=== PATIENT | female | born 1940 | race Caucasian/White ===

== ENCOUNTER 2018-09-12 08:42 | Day surgery (SDC) | payer MEDICARE ==
[~2018-09-12] VITALS: Ht 162.6 cm; Wt 83.9 kg
[~2018-09-12 08:42] MED LIST: APIX5TAB PO; L-THYROXINE PO; LEVO137T24 PO; LEVO150 PO; LOVA10TA2 PO; MECL-111 PO; METO50 PO; PROP225C11 PO; SODIUM CHLORIDE 0.9% 1000ML 1,000 ML IV ONE
[2018-09-12 10:28] VITALS: BP 140/63
[2018-09-12] MEDS ORDERED: PROPOFOL 10 MG/ML 20ML VIAL IV ONE ×2 (12:30)
[2018-09-12] MEDS ORDERED: PHENYLEPHRINE HCL 10 MG/ML 1ML VIAL IV ONE (12:30)
[2018-09-12] MEDS ORDERED: LIDOCAINE HCL 2% 20ML ONE (12:30)
[2018-09-12 13:01] VITALS: BP 123/75
[2018-09-12 13:06] VITALS: BP 101/64
[2018-09-12 13:11] VITALS: BP 116/68
[2018-09-12 13:16] VITALS: BP 122/69
[2018-09-12 13:25] VITALS: BP 129/73
== END 2018-09-12 13:40 | disposition home or self-care (01) ==
LOC: DAH 08:42 → ENDO 08:42
PROVIDERS: ATTEND Internal Medicine
DX: D12.0 Benign neoplasm of cecum (principal); D12.2 Benign neoplasm of ascending colon; D12.3 Benign neoplasm of transverse colon; D12.4 Benign neoplasm of descending colon; D12.5 Benign neoplasm of sigmoid colon; K57.30 Diverticulosis of large intestine without perforation or abscess without bleeding; K64.0 First degree hemorrhoids; I10 Essential (primary) hypertension; E03.9 Hypothyroidism, unspecified; E78.5 Hyperlipidemia, unspecified; Z68.34 Body mass index [BMI] 34.0-34.9, adult; Z79.899 Other long term (current) drug therapy; Z98.890 Other specified postprocedural states; Z90.710 Acquired absence of both cervix and uterus; I48.91 Unspecified atrial fibrillation
CPT/HCPCS: 45380; 45385; 88305; 93005; A4606; A4649; J2370; J2704 ×2; J3490; J7030

== ENCOUNTER → 2019-05-21 | Outpatient (CLI) | payer MEDICARE ==
[~2019-05-21] MED LIST changes: -SODIUM CHLORIDE 0.9% 1000ML 1,000 ML IV ONE
== END | disposition home or self-care (01) ==
LOC: SHCH 09:04
PROVIDERS: ATTEND Internal Medicine Cardiovascular Disease
DX: I48.0 Paroxysmal atrial fibrillation (principal)
CPT/HCPCS: 93306

== ENCOUNTER 2020-02-09 07:12 | Emergency (ER) | payer MEDICARE ==
[~2020-02-09 07:12] MED LIST changes: -MECL-111 PO; +MECL-160 PO
[2020-02-09] MEDS ORDERED: SODIUM CHLORIDE 0.9% 1000ML 1,000 ML IV ONE (07:13)
[2020-02-09 07:52] LABS: BASOPHILS % (AUTO) 0.2 % (0.0-5.0); HEMATOCRIT 43.2 % (36-48); LYMPHOCYTES % (AUTO) 14.6 % (21.0-51.0); MEAN CORPUSCULAR HEMOGLOBIN 29.8 pg (27.0-33.0); MEAN CORPUSCULAR VOLUME 87.4 fL (79-99); MONOCYTES % (AUTO) 7.1 % (3.0-13.0); NEUTROPHILS % (AUTO) 77.8 % (40.0-77.0); PLATELET COUNT (AUTO) 451 K/uL (130-400); RED BLOOD CELL COUNT(AUTO) 4.94 MIL/uL (4.00-5.50); RED CELL DISTRIBUTION WIDTH 12.8 % (11.0-15.5); WHITE BLOOD COUNT (AUTO) 9.2 K/uL (4.8-10.8)
[2020-02-09] MEDS ORDERED: METRONIDAZOLE 500MG/100ML BAG 100 ML ONE (08:07)
[2020-02-09] MEDS ORDERED: LEVOFLOXACIN 500 MG/D5W 100 ML 100 ML ONE (08:07)
[2020-02-09 08:26] LABS: INR 1.18 (0.85-1.15); PARTIAL THROMBOPLASTIN TIME 32.7 SEC (26.3-35.5); PROTHROMBIN TIME 12.7 SEC (9.6-11.6)
[2020-02-09 08:48] LABS: ALBUMIN 3.2 g/dL (3.5-5.0); BILIRUBIN,TOTAL 0.5 mg/dL (0.2-1.0); POTASSIUM 3.5 mmol/L (3.5-5.1); TOTAL PROTEIN, SERUM 6.8 g/dL (6.0-8.3)
[2020-02-09 09:28] LABS: APPEARANCE,URINE Clear (CLEAR); BILIRUBIN,URINE Negative (NEGATIVE); COLOR,URINE Yellow (YELLOW); GLUCOSE, URINE (UA) Negative (NEGATIVE); KETONES,URINE Negative (NEGATIVE); LEUKOCYTE ESTERASE ,URINE Trace (NEGATIVE); NITRATE,URINE Negative (NEGATIVE); OCCULT BLOOD,URINE Negative (NEGATIVE); PH,URINE 5.5 (5.0-8.0); PROTEIN,URINE Negative (NEGATIVE); UROBILINOGEN,URINE 0.2 mg/dL (0.2-1.0)
[2020-02-09 09:31] LABS: BACTERIA,URINE Rare /HPF (None Seen); RBC,URINE 0-1 /HPF (0-1); SQUAMOUS EPITHELIAL CELL,UR Rare /HPF (0-2); WBC,URINE 0-1 /HPF (0-1)
[2020-02-09] MEDS ORDERED: CIPR500S5 PO (23:40)
[2020-02-09] MEDS ORDERED: ONDA4TAB10 PO (23:40)
[2020-02-09] MEDS ORDERED: METR500T PO (23:40)
== END 2020-02-09 13:23 | disposition home or self-care (01) ==
LOC: EDH 07:12
DX: K57.32 Diverticulitis of large intestine without perforation or abscess without bleeding (principal); R11.2 Nausea with vomiting, unspecified; R19.7 Diarrhea, unspecified; E86.0 Dehydration; I10 Essential (primary) hypertension; I48.91 Unspecified atrial fibrillation; Z90.49 Acquired absence of other specified parts of digestive tract; Z90.710 Acquired absence of both cervix and uterus
CPT/HCPCS: 36415; 71045; 74176; 80053; 81001; 82270; 82550; 84484; 85025; 85610; 85730; 87046; 87324; 93005; 96365; 96366; 96368; 99285; J1956; J3490; J7030

== ENCOUNTER 2020-02-09 20:09 | Inpatient (IN) | payer MEDICARE ==
[~2020-02-09] VITALS: Ht 157.5 cm; Wt 83.9 kg
[2020-02-09 20:53] LABS: BASOPHILS % (AUTO) 0.2 % (0.0-5.0); EOSINOPHILS % (AUTO) 0.1 % (0.0-8.0); HEMATOCRIT 41.8 % (36-48); MEAN CORPUSCULAR HEMOGLOBIN 29.6 pg (27.0-33.0); MEAN CORPUSCULAR VOLUME 87.3 fL (79-99); MONOCYTES % (AUTO) 8.3 % (3.0-13.0); PLATELET COUNT (AUTO) 454 K/uL (130-400); RED BLOOD CELL COUNT(AUTO) 4.79 MIL/uL (4.00-5.50); RED CELL DISTRIBUTION WIDTH 12.9 % (11.0-15.5); WHITE BLOOD COUNT (AUTO) 10.8 K/uL (4.8-10.8)
[2020-02-09 21:09] LABS: ALBUMIN 3.2 g/dL (3.5-5.0); BILIRUBIN,TOTAL 0.5 mg/dL (0.2-1.0); CREATININE 0.9 mg/dL (0.5-1.5); POTASSIUM 3.5 mmol/L (3.5-5.1); TOTAL PROTEIN, SERUM 6.6 g/dL (6.0-8.3)
[2020-02-09] MEDS ORDERED: ZOSYN 3.375GM+NS 50ML 50 ML IV ONE (22:23)
[2020-02-09 22:50] VITALS: BP 146/71
[2020-02-09] MEDS ORDERED: FLUCONAZOLE 200 MG/NS 100 ML 100 ML ONE (23:16)
[2020-02-09] MEDS ORDERED: METR500T PO (23:40)
[2020-02-09] MEDS ORDERED: CIPR500S5 PO (23:40)
[2020-02-09] MEDS ORDERED: ONDA4TAB10 PO ×2 (23:40)
[2020-02-10] MEDS ORDERED: ACETAMINOPHEN 325 MG TAB PO PRN
[2020-02-10] MEDS ORDERED: ONDANSETRON HCL 4 MG/2 ML VIAL IVP PRN
[2020-02-10] MEDS ORDERED: MORPHINE SULFATE 4 MG/1ML SYG IV PRN
[2020-02-10] MEDS: SODIUM CHLORIDE 0.9% 1000ML 1,000 ML IV SCH ×2 (03:29→20:00)
[2020-02-10 03:49] VITALS: BP 115/61
[2020-02-10] MEDS: ZOSYN 3.375GM+NS 50ML 50 ML IV SCH ×3 (04:19→20:43)
[2020-02-10 05:22] LABS: BASOPHILS % (AUTO) 0.3 % (0.0-5.0); EOSINOPHILS % (AUTO) 0.3 % (0.0-8.0); HEMATOCRIT 37.8 % (36-48); LYMPHOCYTES % (AUTO) 19.6 % (21.0-51.0); MEAN CORPUSCULAR HEMOGLOBIN 29.2 pg (27.0-33.0); MEAN CORPUSCULAR HGB CONC 32.8 g/dL (32.0-36.0); MEAN CORPUSCULAR VOLUME 89.2 fL (79-99); MONOCYTES % (AUTO) 11.9 % (3.0-13.0); NEUTROPHILS % (AUTO) 67.5 % (40.0-77.0); PLATELET COUNT (AUTO) 365 K/uL (130-400); RED BLOOD CELL COUNT(AUTO) 4.24 MIL/uL (4.00-5.50); WHITE BLOOD COUNT (AUTO) 7.5 K/uL (4.8-10.8)
[2020-02-10 05:42] LABS: CREATININE 0.9 mg/dL (0.5-1.5); POTASSIUM 3.3 mmol/L (3.5-5.1)
[2020-02-10 08:00] VITALS: BP 109/66
[2020-02-10] MEDS ORDERED: ONDANSETRON ODT 4 MG TAB PO PRN (11:00)
[2020-02-10] MEDS ORDERED: POTASSIUM CHLORIDE 10% ELIXIR 20 MEQ/15 ML UDCUP PO PRN (11:45)
[2020-02-10] MEDS ORDERED: LIDOCAINE HCL-MPF 1% 2ML VIAL IV PRN ×2 (11:45→18:15)
[2020-02-10] MEDS ORDERED: POTASSIUM CHLORIDE 20MEQ/100ML 100 ML IV PRN ×2 (11:45→18:15)
[2020-02-10 12:00] VITALS: BP 111/59
[2020-02-10] MEDS: METOPROLOL TARTRATE 50 MG TAB PO SCH (12:29)
[2020-02-10] MEDS: PROPAFENONE HCL 150 MG TABLET PO SCH ×2 (12:30→20:44)
[2020-02-10] MEDS: POTASSIUM CHLORIDE 20 MEQ ERTAB PO PRN ×2 (13:08→20:44)
--- NOTE | 2020-02-10 14:00 | NUR ---
davonte bello of dr thrasher came to see patient. informed patient will keep without diet for now and will come by tomorrow to reevaluate ,for now to cont antibiotics. patient verbalized understanding
[2020-02-10 16:00] VITALS: BP 132/91
[2020-02-10] MEDS ORDERED: SIMVASTATIN 10 MG TABLET ONE (18:36)
[2020-02-10] MEDS ORDERED: APIXABAN 5 MG TABLET PO ONE (18:37)
--- NOTE | 2020-02-10 19:14 | NUR ---
INITIAL Spoke w pt this evening to discuss dcp. Pt mentions that she lives alone. She is independent w ambulation and ADLs. She does not own any DME or receive services. Per pt she feels safe and comfortable to return home at tx and is not willing to consider any short term SNF or rehab. She mentions that her friend Nery Lezama will assist her w meals if needed. DCP for home; CM to continue to follow and wait for Md recommendations. Addendum: 02/10/20 at 1916 by BENJAMÍN ESCOBEDO CM Amended: Links added.
[2020-02-10 20:33] VITALS: BP 106/62
[2020-02-10] MEDS: SIMVASTATIN 10 MG TABLET PO SCH (20:44)
[2020-02-10] MEDS: APIXABAN 5 MG TABLET PO SCH (20:44)
[2020-02-10] MEDS ORDERED: FLUCONAZOLE 200 MG/NS 100 ML 100 ML IV SCH (23:00)
[2020-02-10 23:44] VITALS: BP 98/60
[2020-02-11] MEDS: POTASSIUM CHLORIDE 20 MEQ ERTAB PO PRN (00:15)
[2020-02-11] MEDS: ZOSYN 3.375GM+NS 50ML 50 ML IV SCH ×2 (03:31→21:07)
[2020-02-11 03:45] VITALS: BP 114/70
[2020-02-11] MEDS ORDERED: LEVOTHYROXINE 25 MCG TABLET ONE (05:08)
[2020-02-11 05:32] LABS: ALBUMIN 2.7 g/dL (3.5-5.0); BILIRUBIN,TOTAL 0.5 mg/dL (0.2-1.0); CREATININE 1.1 mg/dL (0.5-1.5); TOTAL PROTEIN, SERUM 5.6 g/dL (6.0-8.3)
[2020-02-11] MEDS: LEVOTHYROXINE 25 MCG TABLET PO SCH (05:36)
[2020-02-11] MEDS: LEVOTHYROXINE 112 MCG TABLET PO SCH (05:36)
[2020-02-11] MEDS: SODIUM CHLORIDE 0.9% 1000ML 1,000 ML IV SCH (05:41)
[2020-02-11 07:30] VITALS: BP 133/79
[2020-02-11] MEDS: PROPAFENONE HCL 150 MG TABLET PO SCH ×2 (08:55→21:08)
[2020-02-11] MEDS: METOPROLOL TARTRATE 50 MG TAB PO SCH (08:55)
[2020-02-11] MEDS: APIXABAN 5 MG TABLET PO SCH ×2 (08:56→21:07)
[2020-02-11 11:00] VITALS: BP 147/77
[2020-02-11 16:00] VITALS: BP 106/64
[2020-02-11] MEDS: SIMVASTATIN 10 MG TABLET PO SCH (21:07)
[2020-02-11 21:12] VITALS: BP 146/71
[2020-02-12 00:37] VITALS: BP 157/73
--- NOTE | 2020-02-12 01:22 | NUR ---
ACTIVITY Pt gets oob,calls for assistance,[facility].
[2020-02-12] MEDS: SODIUM CHLORIDE 0.9% 1000ML 1,000 ML IV SCH (02:54)
[2020-02-12 04:22] VITALS: BP 140/65
[2020-02-12] MEDS: ZOSYN 3.375GM+NS 50ML 50 ML IV SCH (05:07)
[2020-02-12] MEDS: LEVOTHYROXINE 112 MCG TABLET PO SCH (06:07)
[2020-02-12] MEDS: LEVOTHYROXINE 25 MCG TABLET PO SCH (06:07)
[2020-02-12] MEDS ORDERED: LEVOTHYROXINE 150 MCG TABLET PO SCH (06:30)
[2020-02-12] MEDS: METOPROLOL TARTRATE 50 MG TAB PO SCH (07:48)
[2020-02-12] MEDS: APIXABAN 5 MG TABLET PO SCH (07:48)
[2020-02-12] MEDS: PROPAFENONE HCL 150 MG TABLET PO SCH (07:49)
--- NOTE | 2020-02-12 08:00 | NUR ---
PT AAO X 3 REVIEW PLAN OF CARE. DENIES ANY ABD PAIN DIET CHANGE NOTED .WITH NO C/O OF NAUSEA . CALL LIGHT I N REACH.
[2020-02-12 08:43] VITALS: BP 144/85
[2020-02-12] MEDS ORDERED: LEVOTHYROXINE SODIUM 137 MCG PO SCH (09:00)
[2020-02-12 11:48] VITALS: BP 150/70
--- NOTE | 2020-02-12 16:15 | NUR ---
DISCHARGE HOME. REVIEW. DENIES ANY ABD PAIN/ SL TO HER LAF WAS DC WITH NO REDNESS OR HEMATOMA NOTED . SURGERY STANDPOINT WAS ALSO REVIEW AND NO INTERVENTIONS OR FOLLOWUP NEEDED . PT TO FOLLOW PRIVATE AND DR. HOUSER OFFICE WAS CALLED ,AND STAFF STATED THAT THEY WOULD CALL HER . TO SET APPT. TOOK DIET WELL.
== END 2020-02-12 16:15 | disposition home or self-care (01) | DRG 392 ==
LOC: EDH 20:09 → EDHIP 21:45 → 3DH 22:46
PROVIDERS: ADMIT Internal Medicine Infectious Disease; ATTEND Internal Medicine Infectious Disease
DX: K57.32 Diverticulitis of large intestine without perforation or abscess without bleeding (principal); E03.9 Hypothyroidism, unspecified; I48.91 Unspecified atrial fibrillation; E78.5 Hyperlipidemia, unspecified; E66.9 Obesity, unspecified; I10 Essential (primary) hypertension; Z90.710 Acquired absence of both cervix and uterus; Z90.49 Acquired absence of other specified parts of digestive tract; Z68.33 Body mass index [BMI] 33.0-33.9, adult
CPT/HCPCS: 36415; 71045; 74176; 80048; 80053; 81001; 82270; 82550; 83690; 84484; 85025; 85610; 85730; 87046; 87324; 93005; 96365; 96366; 96368; G0378; J1450; J1956; J2405; J2543; J3490; J7030

== ENCOUNTER → 2021-03-23 | Outpatient (CLI) | payer MEDICARE ==
[~2021-03-23] MED LIST changes: +CIPR500S5 PO; -L-THYROXINE PO; -MECL-160 PO; +METR500T PO; +ONDA4TAB10 PO
== END | disposition home or self-care (01) ==
LOC: RAH 12:37
PROVIDERS: ATTEND Orthopaedic Surgery
DX: S83.241A Other tear of medial meniscus, current injury, right knee, initial encounter (principal); S83.242A Other tear of medial meniscus, current injury, left knee, initial encounter; M17.0 Bilateral primary osteoarthritis of knee; X58.XXXA Exposure to other specified factors, initial encounter; Y93.89 Activity, other specified; Y92.89 Other specified places as the place of occurrence of the external cause; Y99.8 Other external cause status
CPT/HCPCS: 73721

== ENCOUNTER 2021-11-04 10:42 | Day surgery (SDC) | payer MEDICARE ==
[2021-11-02 09:55] LABS: BASOPHILS % (AUTO) 0.3 % (0.0-5.0); EOSINOPHILS % (AUTO) 0.5 % (0.0-8.0); HEMATOCRIT 48.4 % (36-48); LYMPHOCYTES % (AUTO) 26.5 % (21.0-51.0); MEAN CORPUSCULAR HEMOGLOBIN 29.9 pg (27.0-33.0); MEAN CORPUSCULAR HGB CONC 32.9 g/dL (32.0-36.0); MEAN CORPUSCULAR VOLUME 91.1 fL (79-99); MONOCYTES % (AUTO) 10.3 % (3.0-13.0); NEUTROPHILS % (AUTO) 62.1 % (40.0-77.0); PLATELET COUNT (AUTO) 299 K/uL (130-400); RED BLOOD CELL COUNT(AUTO) 5.31 MIL/uL (4.00-5.50); RED CELL DISTRIBUTION WIDTH 13.1 % (11.0-15.5); WHITE BLOOD COUNT (AUTO) 8.6 K/uL (4.8-10.8)
[2021-11-02 10:17] LABS: CREATININE 0.8 mg/dL (0.5-1.5); POTASSIUM 4.2 mmol/L (3.5-5.1)
[2021-11-02 10:24] LABS: INR 1.09 (0.85-1.15); PROTHROMBIN TIME 11.8 SEC (9.6-11.6)
[2021-11-02 10:25] LABS: PARTIAL THROMBOPLASTIN TIME 26.8 SEC (26.3-35.5)
[2021-11-03 09:19] VITALS: BP 175/82
[~2021-11-04] VITALS: Ht 152.4 cm; Wt 83.9 kg
[2021-11-04] VITALS (19 sets, daily range): BP systolic 124–180; BP diastolic 76–125
[~2021-11-04 10:42] MED LIST changes: +CEFAZOLIN SODIUM 1 GM VIAL IVP ONE; -CIPR500S5 PO; -LOVA10TA2 PO; -METR500T PO; -ONDA4TAB10 PO; +ROSU5TAB12 PO; +VITAMIN D PO
[2021-11-04] MEDS ORDERED: LACTATED RINGERS 1000ML 1,000 ML IV ONE (11:35)
[2021-11-04] MEDS ORDERED: CEFAZOLIN SODIUM 1 GM VIAL ONE (11:59)
[2021-11-04] MEDS ORDERED: SUCCINYLCHOLINE 200MG/10ML SYR ONE (12:13)
[2021-11-04] MEDS ORDERED: MIDAZOLAM HCL 1 MG/ML 2ML VIAL ONE (12:13)
[2021-11-04] MEDS ORDERED: LIDOCAINE PF 100MG/5ML (2%) SYRINGE 5ML ONE (12:13)
[2021-11-04] MEDS ORDERED: ROCURONIUM 10MG/1ML SYR 10 MG/ML ML ONE (12:13)
[2021-11-04] MEDS ORDERED: FENTANYL CITRATE PF 50 MCG/1 ML 2ML VIAL ONE (12:13)
[2021-11-04] MEDS ORDERED: PROPOFOL 10 MG/ML 20ML VIAL IV ONE (12:13)
[2021-11-04] MEDS ORDERED: ROPIVACAINE 0.5% 5MG/ML 30ML IJ ONE (12:16)
[2021-11-04] MEDS ORDERED: DEXAMETHASONE SOD PHOSPHATE 10MG/ML 1ML VIAL ONE (12:23)
[2021-11-04] MEDS ORDERED: GLYCOPYRROLATE 1 MG/5 ML SYRINGE ONE (13:05)
[2021-11-04] MEDS ORDERED: EPHEDRINE SULFATE 50 MG/ML AMPULE ONE (13:22)
[2021-11-04] MEDS ORDERED: MEPERIDINE-PF 25 MG/ML SYG ONE (14:46)
[2021-11-04] MEDS ORDERED: ENALAPRILAT DIHYDRATE 1.25MG/ML 1ML VIAL IV ONE (14:56)
[2021-11-04] MEDS ORDERED: KETOROLAC 30MG VIAL (30MG/ML) ONE (16:15)
== END 2021-11-04 16:58 | disposition home or self-care (01) ==
LOC: DAH 10:42
PROVIDERS: ATTEND Specialist
DX: C50.911 Malignant neoplasm of unspecified site of right female breast (principal); E66.9 Obesity, unspecified; M81.0 Age-related osteoporosis without current pathological fracture; Z79.899 Other long term (current) drug therapy; Z79.01 Long term (current) use of anticoagulants; Z90.49 Acquired absence of other specified parts of digestive tract; Z90.89 Acquired absence of other organs; Z90.710 Acquired absence of both cervix and uterus; Z98.890 Other specified postprocedural states; Z98.49 Cataract extraction status, unspecified eye; Z68.34 Body mass index [BMI] 34.0-34.9, adult
CPT/HCPCS: 19307; 36415; 71045; 80048; 85025; 85610; 85730; 87635; 93005; A4215 ×2; A4221 ×2; A4222 ×2; A4223 ×2; A4663 ×2; A6260; A6446; A6450; C9803; J0330; J0690; J1100; J1885; J2001; J2175; J2250; J2704; J2795; J3010; J3490 ×3; J7120

== ENCOUNTER 2022-03-09 17:52 | Emergency (ER) | payer MEDICARE ==
[~2022-03-09 17:52] MED LIST changes: -CEFAZOLIN SODIUM 1 GM VIAL IVP ONE
[2022-03-09 18:09] LABS: BASOPHILS % (AUTO) 0.2 % (0.0-5.0); EOSINOPHILS % (AUTO) 0.2 % (0.0-8.0); HEMATOCRIT 43.1 % (36-48); LYMPHOCYTES % (AUTO) 23.5 % (21.0-51.0); MEAN CORPUSCULAR HEMOGLOBIN 30.2 pg (27.0-33.0); MEAN CORPUSCULAR HGB CONC 34.6 g/dL (32.0-36.0); MEAN CORPUSCULAR VOLUME 87.4 fL (79-99); MONOCYTES % (AUTO) 9.2 % (3.0-13.0); NEUTROPHILS % (AUTO) 66.6 % (40.0-77.0); PLATELET COUNT (AUTO) 317 K/uL (130-400); RED BLOOD CELL COUNT(AUTO) 4.93 MIL/uL (4.00-5.50); RED CELL DISTRIBUTION WIDTH 12.2 % (11.0-15.5); WHITE BLOOD COUNT (AUTO) 9.5 K/uL (4.8-10.8)
[2022-03-09 18:18] LABS: CREATININE 0.9 mg/dL (0.5-1.5); POTASSIUM 3.6 mmol/L (3.5-5.1)
[2022-03-09 18:23] LABS: ALBUMIN 3.6 g/dL (3.5-5.0); TOTAL PROTEIN, SERUM 6.7 g/dL (6.0-8.3)
[2022-03-09] MEDS ORDERED: 0.9%NACL 1000ML 1,000 ML IV ONE (19:00)
[2022-03-09 19:29] VITALS: BP 172/4
[2022-03-09] MEDS ORDERED: DIPH1TAB PO (19:40)
== END 2022-03-09 19:53 | disposition home or self-care (01) ==
LOC: EDH 17:52
DX: U07.1 COVID-19 (principal); R19.7 Diarrhea, unspecified; Z79.01 Long term (current) use of anticoagulants
CPT/HCPCS: 99284; 96360; 87635; 84484; 80053; 85025; 36415; 93005; C9803; J7030

== ENCOUNTER 2022-08-11 00:54 | Emergency (ER) | payer MEDICARE ==
[~2022-08-11] VITALS: Ht 157.5 cm; Wt 85.3 kg
[~2022-08-11 00:54] MED LIST changes: +DIPH1TAB PO
[2022-08-11 02:20] LABS: BASOPHILS % (AUTO) 0.2 % (0.0-5.0); EOSINOPHILS % (AUTO) 0.3 % (0.0-8.0); HEMATOCRIT 41.6 % (36-48); LYMPHOCYTES % (AUTO) 19.8 % (21.0-51.0); MEAN CORPUSCULAR HEMOGLOBIN 30.4 pg (27.0-33.0); MEAN CORPUSCULAR HGB CONC 33.7 g/dL (32.0-36.0); MEAN CORPUSCULAR VOLUME 90.4 fL (79-99); MONOCYTES % (AUTO) 8.7 % (3.0-13.0); NEUTROPHILS % (AUTO) 70.7 % (40.0-77.0); PLATELET COUNT (AUTO) 270 K/uL (130-400); WHITE BLOOD COUNT (AUTO) 10.1 K/uL (4.8-10.8)
[2022-08-11 02:28] LABS: CREATININE 0.9 mg/dL (0.5-1.5)
[2022-08-11 02:33] LABS: ALBUMIN 3.4 g/dL (3.5-5.0); TOTAL PROTEIN, SERUM 6.1 g/dL (6.0-8.3)
[2022-08-11 03:14] LABS: APPEARANCE,URINE CLEAR (CLEAR); BILIRUBIN,URINE NEGATIVE (NEGATIVE); COLOR,URINE COLORLESS (YELLOW); GLUCOSE, URINE (UA) NEGATIVE (NEGATIVE); KETONES,URINE NEGATIVE (NEGATIVE); LEUKOCYTE ESTERASE ,URINE 250 Leu/uL (NEGATIVE); NITRATE,URINE NEGATIVE (NEGATIVE); OCCULT BLOOD,URINE NEGATIVE (NEGATIVE); PH,URINE 5.5 (5.0-8.0); PROTEIN,URINE NEGATIVE (NEGATIVE); UROBILINOGEN,URINE 0.2 mg/dL (0.2-1.0)
[2022-08-11 03:33] LABS: BACTERIA,URINE RARE /HPF (None Seen); SQUAMOUS EPITHELIAL CELL,UR RARE /HPF (0-2)
[2022-08-11] MEDS ORDERED: CEPH500B PO (04:03)
[2022-08-11 04:21] VITALS: BP 156/73
[2022-08-11] MEDS ORDERED: CEFTRIAXONE 1G VIAL IVP ONE (04:30)
== END 2022-08-11 04:30 | disposition home or self-care (01) ==
LOC: EDH 00:54
DX: I10 Essential (primary) hypertension (principal); N39.0 Urinary tract infection, site not specified; I48.91 Unspecified atrial fibrillation; M19.90 Unspecified osteoarthritis, unspecified site; E78.00 Pure hypercholesterolemia, unspecified; Z79.899 Other long term (current) drug therapy; Z98.890 Other specified postprocedural states; Z90.11 Acquired absence of right breast and nipple; Z90.89 Acquired absence of other organs; Z90.49 Acquired absence of other specified parts of digestive tract; Z85.3 Personal history of malignant neoplasm of breast
CPT/HCPCS: 99285; 96374; 71045; 84484; 80053; 85025; 87088; 81001; 36415; 93005; J0696

== ENCOUNTER → 2023-09-09 | Outpatient (CLI) | payer MEDICARE ==
[~2023-09-09] MED LIST changes: +CEPH500B PO
== END | disposition home or self-care (01) ==
LOC: SHCH 10:41
PROVIDERS: ATTEND Internal Medicine Cardiovascular Disease
DX: I08.0 Rheumatic disorders of both mitral and aortic valves (principal); I48.0 Paroxysmal atrial fibrillation; I10 Essential (primary) hypertension
CPT/HCPCS: 93306

== ENCOUNTER → 2024-02-01 | Outpatient (CLI) | payer MEDICARE ==
[~2024-02-01] MED LIST changes: -ROSU5TAB12 PO; +ROSU5TAB43 PO
== END | disposition home or self-care (01) ==
LOC: RAH 11:01
PROVIDERS: ATTEND Orthopaedic Surgery
DX: S73.192A Other sprain of left hip, initial encounter (principal); X58.XXXA Exposure to other specified factors, initial encounter; Y93.89 Activity, other specified; Y92.89 Other specified places as the place of occurrence of the external cause; Y99.8 Other external cause status
CPT/HCPCS: 73721

== ENCOUNTER 2024-03-12 08:56 | Emergency (ER) | payer MEDICARE ==
[~2024-03-12] VITALS: Ht 157.5 cm; Wt 81.6 kg
[~2024-03-12 08:56] MED LIST changes: +ONDA-243 PO
[2024-03-12 08:57] VITALS: TEMP 97.8
[2024-03-12 09:13] LABS: BASOPHILS # (AUTO) 0.02 K/uL (0.00-0.20); BASOPHILS % (AUTO) 0.2 % (0.0-5.0); EOSINOPHILS # (AUTO) 0.08 K/uL (0.00-0.70); EOSINOPHILS % (AUTO) 0.7 % (0.0-8.0); HEMATOCRIT 42.6 % (36-48); IMMATURE GRANULOCYTE ABSOLUTE 0.04 K/uL (0-1); LYMPHOCYTES # (AUTO) 1.4 K/uL (1.0-4.8); LYMPHOCYTES % (AUTO) 13.2 % (21.0-51.0); MEAN CORPUSCULAR HEMOGLOBIN 30.8 pg (27.0-33.0); MEAN CORPUSCULAR HGB CONC 33.1 g/dL (32.0-36.0); MONOCYTES # (AUTO) 1.2 K/uL (0.1-1.0); MONOCYTES % (AUTO) 10.7 % (3.0-13.0); NEUTROPHILS # (AUTO) 8.2 K/uL (1.8-7.7); NEUTROPHILS % (AUTO) 74.8 % (40.0-77.0); PLATELET COUNT (AUTO) 301 K/uL (130-400); RED BLOOD CELL COUNT(AUTO) 4.58 MIL/uL (4.00-5.50); RED CELL DISTRIBUTION WIDTH 13.2 % (11.0-15.5); WHITE BLOOD COUNT (AUTO) 10.9 K/uL (4.8-10.8)
[2024-03-12 09:24] LABS: POTASSIUM 3.8 mmol/L (3.5-5.1)
[2024-03-12 09:46] LABS: APPEARANCE,URINE CLOUDY (CLEAR); BILIRUBIN,URINE NEGATIVE (NEGATIVE); COLOR,URINE YELLOW (YELLOW); GLUCOSE, URINE (UA) NEGATIVE (NEGATIVE); KETONES,URINE NEGATIVE (NEGATIVE); LEUKOCYTE ESTERASE ,URINE 500 Leu/uL (NEGATIVE); NITRATE,URINE 2+ (NEGATIVE); PH,URINE 5.5 (5.0-8.0); PROTEIN,URINE 20 mg/dL (NEGATIVE); UROBILINOGEN,URINE 0.2 mg/dL (0.2-1.0)
[2024-03-12 09:54] LABS: ADD UA MICROSCOPIC YES
[2024-03-12 09:57] LABS: BACTERIA,URINE MOD /HPF (None Seen); MUCUS,URINE RARE LPF (None Seen); SQUAMOUS EPITHELIAL CELL,UR FEW /HPF (0-2); WBC CLUMP FEW /HPF (0-1); WBC,URINE TNTC /HPF (0-1)
[2024-03-12] MEDS ORDERED: CEPH500B PO (10:36)
[2024-03-12] MEDS: 0.9%NACL 1000ML 1,000 ML IV ONE (12:40)
[2024-03-12 12:53] VITALS: BP 136/52; PULSE 60; RESP 20; O2SAT 99
== END 2024-03-12 12:51 | disposition home or self-care (01) ==
LOC: EDH 08:56
DX: N39.0 Urinary tract infection, site not specified (principal); I48.91 Unspecified atrial fibrillation; E03.9 Hypothyroidism, unspecified; E78.00 Pure hypercholesterolemia, unspecified; I10 Essential (primary) hypertension; Z79.01 Long term (current) use of anticoagulants; Z85.3 Personal history of malignant neoplasm of breast
CPT/HCPCS: 99285; 71045; 84484; 80048; 83690; 85025; 87086 ×2; 87186; 81001; 36415; 93005; J7030

== ENCOUNTER 2024-03-22 09:38 | Inpatient (IN) | payer MEDICARE ==
[~2024-03-22] VITALS: Ht 157.5 cm; Wt 81.6 kg
[2024-03-22] MEDS: 0.9%NACL 1000ML 1,000 ML IV SCH (10:11)
[2024-03-22] MEDS ORDERED: ACET-2079 PO (11:06)
[2024-03-22] MEDS ORDERED: AMLO5TAB5 PO (11:06)
[2024-03-22] MEDS ORDERED: ANAS1TAB49 PO (11:06)
[2024-03-22] MEDS ORDERED: LOSA-417 PO (11:06)
[2024-03-22] MEDS ORDERED: ERGO500093 PO (11:06)
[2024-03-22] MEDS ORDERED: MELO-106 PO (11:06)
[2024-03-22 11:24] LABS: BASOPHILS # (AUTO) 0.02 K/uL (0.00-0.20); BASOPHILS % (AUTO) 0.2 % (0.0-5.0); EOSINOPHILS # (AUTO) 0.06 K/uL (0.00-0.70); EOSINOPHILS % (AUTO) 0.6 % (0.0-8.0); HEMATOCRIT 42.6 % (36-48); IMMATURE GRANULOCYTE ABSOLUTE 0.03 K/uL (0-1); LYMPHOCYTES # (AUTO) 1.4 K/uL (1.0-4.8); LYMPHOCYTES % (AUTO) 15.5 % (21.0-51.0); MEAN CORPUSCULAR HEMOGLOBIN 31.1 pg (27.0-33.0); MEAN CORPUSCULAR VOLUME 91.4 fL (79-99); MONOCYTES # (AUTO) 1.1 K/uL (0.1-1.0); MONOCYTES % (AUTO) 11.5 % (3.0-13.0); NEUTROPHILS # (AUTO) 6.7 K/uL (1.8-7.7); NEUTROPHILS % (AUTO) 71.9 % (40.0-77.0); PLATELET COUNT (AUTO) 298 K/uL (130-400); RED BLOOD CELL COUNT(AUTO) 4.66 MIL/uL (4.00-5.50); RED CELL DISTRIBUTION WIDTH 13.3 % (11.0-15.5); WHITE BLOOD COUNT (AUTO) 9.3 K/uL (4.8-10.8)
[2024-03-22 11:30] VITALS: BP 147/67; PULSE 54; RESP 19; TEMP 97.9
[2024-03-22 11:30] LABS: CREATININE 0.9 mg/dL (0.5-1.0); POTASSIUM 3.5 mmol/L (3.5-5.1)
[2024-03-22 11:45] LABS: INR 1.18 (0.85-1.15); PROTHROMBIN TIME 12.6 SEC (9.6-11.6)
[2024-03-22 11:46] LABS: PARTIAL THROMBOPLASTIN TIME 27.3 SEC (26.3-35.5)
[2024-03-22] MEDS ORDERED: morPHINE 2 MG SYG IVP PRN (13:00)
[2024-03-22] MEDS ORDERED: IOHEXOL-350 75 ML VIAL IV ONE (15:08)
[2024-03-22 16:00] VITALS: BP 118/64; PULSE 58; RESP 18; TEMP 98.5
[2024-03-22 20:00] VITALS: BP 133/71; PULSE 59; RESP 20; TEMP 98.1; O2SAT 96
[2024-03-22] MEDS: ZOSYN 3.375GM +NS 50ML IV SCH (20:43)
[2024-03-22] MEDS: metoPROLOL tartRATE 50 MG TAB PO SCH (20:43)
[2024-03-22] MEDS: APIXaban 5 MG TABLET PO SCH (20:43)
[2024-03-22] MEDS: atorVAStatin 20 MG TABLET PO SCH (20:44)
[2024-03-23] VITALS (7 sets, daily range): BP systolic 109–136; BP diastolic 54–73; PULSE 52–63; RESP 17–20; TEMP 97.7–98.5; O2SAT 96
[2024-03-23 05:05] LABS: BASOPHILS # (AUTO) 0.02 K/uL (0.00-0.20); BASOPHILS % (AUTO) 0.3 % (0.0-5.0); EOSINOPHILS # (AUTO) 0.07 K/uL (0.00-0.70); HEMATOCRIT 40.4 % (36-48); IMMATURE GRANULOCYTE ABSOLUTE 0.02 K/uL (0-1); LYMPHOCYTES # (AUTO) 1.4 K/uL (1.0-4.8); LYMPHOCYTES % (AUTO) 20.8 % (21.0-51.0); MEAN CORPUSCULAR HEMOGLOBIN 30.7 pg (27.0-33.0); MEAN CORPUSCULAR HGB CONC 32.9 g/dL (32.0-36.0); MEAN CORPUSCULAR VOLUME 93.3 fL (79-99); MONOCYTES # (AUTO) 0.9 K/uL (0.1-1.0); MONOCYTES % (AUTO) 13.9 % (3.0-13.0); NEUTROPHILS # (AUTO) 4.3 K/uL (1.8-7.7); NEUTROPHILS % (AUTO) 63.7 % (40.0-77.0); PLATELET COUNT (AUTO) 241 K/uL (130-400); RED BLOOD CELL COUNT(AUTO) 4.33 MIL/uL (4.00-5.50); RED CELL DISTRIBUTION WIDTH 13.2 % (11.0-15.5); WHITE BLOOD COUNT (AUTO) 6.7 K/uL (4.8-10.8)
[2024-03-23 05:18] LABS: ALBUMIN 2.9 g/dL (3.5-5.0); BILIRUBIN,TOTAL 1.3 mg/dL (0.2-1.0); CREATININE 0.8 mg/dL (0.5-1.0); MAGNESIUM 1.9 mg/dL (1.80-2.40); POTASSIUM 3.5 mmol/L (3.5-5.1); TOTAL PROTEIN, SERUM 5.5 g/dL (6.0-8.3)
[2024-03-23] MEDS: PoTASSium chloRIDE 20MEQ ER 20 MEQ ERTAB PO PRN (07:13)
[2024-03-23] MEDS: MELOXICAM 7.5 MG TABLET PO SCH (09:00)
[2024-03-23] MEDS: amLODIPine 5 MG TAB PO SCH (09:51)
[2024-03-23] MEDS: LoSARTan 25 MG TABLET PO SCH (09:52)
[2024-03-23] MEDS: ANASTROZOLE PO SCH (12:47)
[2024-03-23] MEDS ORDERED: LEVO150T11 PO (13:07)
[2024-03-23] MEDS ORDERED: LEVO137T24 PO (13:07)
[2024-03-23] MEDS ORDERED: [UNRECOGNIZED DRUG - REMARK] MISC SCH (13:30)
[2024-03-24] VITALS (7 sets, daily range): BP systolic 124–150; BP diastolic 68–73; PULSE 54–61; RESP 16–20; TEMP 97.9–98.6; O2SAT 95
[2024-03-24] MEDS: levoTHYROxine 150 MCG TABLET PO SCH (05:47)
[2024-03-25] VITALS (8 sets, daily range): BP systolic 115–141; BP diastolic 57–73; PULSE 55–67; RESP 16–19; TEMP 97.6–98.4; O2SAT 96
[2024-03-26] VITALS (7 sets, daily range): BP systolic 104–142; BP diastolic 45–67; PULSE 56–66; RESP 17–19; TEMP 97.9–98.3; O2SAT 93–96
[2024-03-26 04:38] LABS: HEMATOCRIT 37.8 % (36-48); MEAN CORPUSCULAR HGB CONC 33.6 g/dL (32.0-36.0); MEAN CORPUSCULAR VOLUME 92.2 fL (79-99); RED BLOOD CELL COUNT(AUTO) 4.1 MIL/uL (4.00-5.50); RED CELL DISTRIBUTION WIDTH 13.1 % (11.0-15.5)
[2024-03-26 04:56] LABS: CREATININE 0.9 mg/dL (0.5-1.0); POTASSIUM 3.1 mmol/L (3.5-5.1)
[2024-03-26] MEDS: guaiFENesin-DM 200/20MG 10ML PO PRN (21:03)
[2024-03-26] MEDS: ondanSETRON 4MG INJ IVP PRN (22:45)
[2024-03-27] VITALS (7 sets, daily range): BP systolic 118–145; BP diastolic 58–64; PULSE 54–66; RESP 17–20; TEMP 98–98.6; O2SAT 93–96
[2024-03-27 04:44] LABS: HEMATOCRIT 40.1 % (36-48); MEAN CORPUSCULAR HGB CONC 33.7 g/dL (32.0-36.0); MEAN CORPUSCULAR VOLUME 92.2 fL (79-99); RED BLOOD CELL COUNT(AUTO) 4.35 MIL/uL (4.00-5.50); WHITE BLOOD COUNT (AUTO) 10.8 K/uL (4.8-10.8)
[2024-03-27 04:53] LABS: CREATININE 0.7 mg/dL (0.5-1.0); MAGNESIUM 1.6 mg/dL (1.80-2.40); POTASSIUM 3.2 mmol/L (3.5-5.1)
[2024-03-27] MEDS: DIPHENOXYLATE HCL/ATROPINE 2.5/0.025 MG TAB PO PRN (18:09)
[2024-03-28] VITALS (9 sets, daily range): BP systolic 109–132; BP diastolic 58–74; PULSE 51–65; RESP 17–20; TEMP 97.6–98.6; O2SAT 93–96
[2024-03-28 05:25] LABS: BASOPHILS # (AUTO) 0.02 K/uL (0.00-0.20); BASOPHILS % (AUTO) 0.3 % (0.0-5.0); EOSINOPHILS # (AUTO) 0.08 K/uL (0.00-0.70); HEMATOCRIT 39.5 % (36-48); IMMATURE GRANULOCYTE ABSOLUTE 0.04 K/uL (0-1); LYMPHOCYTES # (AUTO) 1.4 K/uL (1.0-4.8); LYMPHOCYTES % (AUTO) 17.8 % (21.0-51.0); MEAN CORPUSCULAR HEMOGLOBIN 31.4 pg (27.0-33.0); MEAN CORPUSCULAR HGB CONC 33.7 g/dL (32.0-36.0); MEAN CORPUSCULAR VOLUME 93.2 fL (79-99); MONOCYTES # (AUTO) 0.9 K/uL (0.1-1.0); MONOCYTES % (AUTO) 11.5 % (3.0-13.0); NEUTROPHILS # (AUTO) 5.3 K/uL (1.8-7.7); NEUTROPHILS % (AUTO) 68.9 % (40.0-77.0); PLATELET COUNT (AUTO) 227 K/uL (130-400); RED BLOOD CELL COUNT(AUTO) 4.24 MIL/uL (4.00-5.50); RED CELL DISTRIBUTION WIDTH 13.2 % (11.0-15.5); WHITE BLOOD COUNT (AUTO) 7.7 K/uL (4.8-10.8)
[2024-03-28 05:28] LABS: CREATININE 0.8 mg/dL (0.5-1.0); MAGNESIUM 1.6 mg/dL (1.80-2.40); POTASSIUM 3.1 mmol/L (3.5-5.1)
[2024-03-28] MEDS: PoTASSium chloRIDE 20MEQ/100ML 100 ML IV PRN (06:44)
[2024-03-28] MEDS: MAGNESIUM 2GM PREMIX 50ML 50 ML IV PRN (11:44)
[2024-03-28] MEDS ORDERED: acetaMINOPHEN 325 MG TAB PO PRN (16:00)
[2024-03-28] MEDS: acetaMINOPHEN 325 MG TAB PO PRN (16:16)
[2024-03-29 03:49] VITALS: BP 131/71; PULSE 60; RESP 16; TEMP 98.7
[2024-03-29 05:43] LABS: BASOPHILS # (AUTO) 0.02 K/uL (0.00-0.20); BASOPHILS % (AUTO) 0.2 % (0.0-5.0); EOSINOPHILS # (AUTO) 0.08 K/uL (0.00-0.70); EOSINOPHILS % (AUTO) 0.9 % (0.0-8.0); HEMATOCRIT 41.3 % (36-48); IMMATURE GRANULOCYTE ABSOLUTE 0.03 K/uL (0-1); LYMPHOCYTES # (AUTO) 1.5 K/uL (1.0-4.8); LYMPHOCYTES % (AUTO) 17.8 % (21.0-51.0); MEAN CORPUSCULAR HEMOGLOBIN 30.4 pg (27.0-33.0); MEAN CORPUSCULAR HGB CONC 33.9 g/dL (32.0-36.0); MEAN CORPUSCULAR VOLUME 89.6 fL (79-99); MONOCYTES # (AUTO) 0.9 K/uL (0.1-1.0); MONOCYTES % (AUTO) 9.8 % (3.0-13.0); NEUTROPHILS # (AUTO) 6.1 K/uL (1.8-7.7); PLATELET COUNT (AUTO) 249 K/uL (130-400); RED BLOOD CELL COUNT(AUTO) 4.61 MIL/uL (4.00-5.50); WHITE BLOOD COUNT (AUTO) 8.6 K/uL (4.8-10.8)
[2024-03-29 05:51] LABS: CREATININE 0.7 mg/dL (0.5-1.0); POTASSIUM 3.5 mmol/L (3.5-5.1)
[2024-03-29 08:00] VITALS: BP 145/70; PULSE 60; RESP 18; TEMP 97.7
[2024-03-29 09:00] VITALS: O2SAT 95
[2024-03-29] MEDS: ERGOCALCIFEROL (VITAMIN D2) 50,000 UNIT CAPSULE PO SCH (09:34)
[2024-03-29 12:00] VITALS: BP 120/77; PULSE 66; RESP 19; TEMP 97.8
[2024-03-29 16:00] VITALS: BP 105/63; PULSE 60; RESP 18; TEMP 98.1
[2024-03-29] MEDS ORDERED: IOHEXOL-350 75 ML VIAL IV ONE (18:19)
[2024-03-29 20:00] VITALS: BP 115/71; PULSE 69; RESP 16; TEMP 98.4; O2SAT 96
[2024-03-30] VITALS (26 sets, daily range): BP systolic 77–147; BP diastolic 43–75; PULSE 49–67; RESP 15–25; TEMP 97.8–98.4; O2SAT 94–97
[2024-03-30] MEDS ORDERED: proPOFol 10 MG/ML 20ML VIAL IV ONE (08:20)
[2024-03-30] MEDS ORDERED: LIDOCAINE PF 100MG/5ML (2%) SYRINGE 5ML ONE (08:21)
[2024-03-30] MEDS: APIXaban 5 MG TABLET PO SCH (11:48)
[2024-03-31] VITALS: BP 136/70; PULSE 57; RESP 18; TEMP 98.1
[2024-03-31 05:01] VITALS: BP 133/69; PULSE 53; RESP 18; TEMP 98
[2024-03-31 05:30] LABS: HEMATOCRIT 38.9 % (36-48); MEAN CORPUSCULAR HEMOGLOBIN 30.2 pg (27.0-33.0); MEAN CORPUSCULAR HGB CONC 33.2 g/dL (32.0-36.0); MEAN CORPUSCULAR VOLUME 91.1 fL (79-99); RED BLOOD CELL COUNT(AUTO) 4.27 MIL/uL (4.00-5.50); RED CELL DISTRIBUTION WIDTH 13.2 % (11.0-15.5); WHITE BLOOD COUNT (AUTO) 5.9 K/uL (4.8-10.8)
[2024-03-31 05:48] LABS: CREATININE 0.7 mg/dL (0.5-1.0); MAGNESIUM 1.6 mg/dL (1.80-2.40); POTASSIUM 3.1 mmol/L (3.5-5.1)
[2024-03-31 08:00] VITALS: BP 126/64; PULSE 55; RESP 18; TEMP 97.7; O2SAT 95
[2024-03-31] MEDS: PoTASSium chl 10% ELIXIR 20MEQ 20 MEQ/15 ML UDCUP PO PRN (09:50)
[2024-03-31 11:54] VITALS: BP 123/61; PULSE 60; RESP 18; TEMP 98.3
[2024-03-31 16:00] VITALS: BP 130/64; PULSE 57; RESP 18; TEMP 97.9
== END 2024-03-31 17:05 | disposition home or self-care (01) | DRG 392 ==
LOC: EDH 09:39 → EDHIP 09:40 → 3DH 11:29
PROVIDERS: ADMIT Internal Medicine Infectious Disease; ATTEND Internal Medicine Infectious Disease
PROC: 0DB58ZX Excision of Esophagus, Via Natural or Artificial Opening Endoscopic, Diagnostic (ICD-10-PCS; principal; 2024-03-30)
PROC: 0DB78ZX Excision of Stomach, Pylorus, Via Natural or Artificial Opening Endoscopic, Diagnostic (ICD-10-PCS; 2024-03-30)
DX: K52.9 Noninfective gastroenteritis and colitis, unspecified (principal); K57.32 Diverticulitis of large intestine without perforation or abscess without bleeding; K44.9 Diaphragmatic hernia without obstruction or gangrene; E03.9 Hypothyroidism, unspecified; I10 Essential (primary) hypertension; I48.91 Unspecified atrial fibrillation; E78.5 Hyperlipidemia, unspecified; K29.00 Acute gastritis without bleeding; R63.4 Abnormal weight loss; K29.80 Duodenitis without bleeding; E86.0 Dehydration; Z79.01 Long term (current) use of anticoagulants; Z85.3 Personal history of malignant neoplasm of breast; Z90.11 Acquired absence of right breast and nipple; Z90.711 Acquired absence of uterus with remaining cervical stump; Z90.710 Acquired absence of both cervix and uterus; Z68.39 Body mass index [BMI] 39.0-39.9, adult
CPT/HCPCS: 36415; 43239; 70492; 74177; 80048; 80053; 82270; 82948; 83735; 84132; 85025; 85027; 85610; 85730; 87046; 87177; A4606; G0378; J2003; J2405; J2543; J2704; J3475; J3480; J7030; Q9967; A4215; A4222; A4620; A4657; J3490

== ENCOUNTER → 2024-06-21 | Outpatient (CLI) | payer MEDICARE ==
[~2024-06-21] MED LIST changes: +AMLO5TAB5 PO; +ANAS1TAB49 PO; -CEPH500B PO; -DIPH1TAB PO; +ERGO500093 PO; -LEVO150 PO; +LEVO150T11 PO; +LOSA-417 PO; +MELO-106 PO; -ONDA-243 PO; -ROSU5TAB43 PO; +ROSU5TAB51 PO; -VITAMIN D PO
[2024-06-21] MEDS: REGADENOSON 0.4 MG/5 ML PF SYG IVP ONE (13:58)
--- NOTE | 2024-06-22 08:37 | HMCSR ---
APPROVED REPORT Height: 5 ft 2in Weight: 177 lbs TEST INDICATIONS Abnormal ECG The imaging protocol used to acquire images was Rest Tc-99m/stress Tc-99m 1 day Consent: The procedure was explained and understood by the patient. Informerd consent was witnessed Darren Nichols RN First, low dose rest was performed then high dose stress. RESTING DATA: The resting ekg shows: NSR Rest SPECT myocardial perfusion imaging was performed in supine position 73 minutes following the int ravenous injection of 9.8 mCi of Tc-99 Sestamibi. Time of rest injection: 09:05: Date: 06/21/2024 Time of rest imagin:18: Date: 06/21/2024 PHARMACOLOGIC STRESS: Pharmacologic stress test was performed by injecting regadenoson 0.4 mg IV push followed by the intra venous injection of 31.2 mCi of Tc-99 Sestamibi. Time of stress injection: 10:55: Date: 06/21/2024 Time of stress imagin:47: Date: 06/21/2024 Heart Rate at time of stress injection: 56 bpm. Gated Stress SPECT was performed 52 minutes after stress injection. The images were gated to evaluate regional wall motion and calculate left ventricular ejection fracti on. STRESS DETAILS Reason for Termination: Infusion complete Stress Symptoms: No chest pain or symptoms Max HR Achieved: 70 bpm % of APMHR Achieved: 52 Max Blood Pressure: 120/69 mmHg Stress ECG: NSR LEFT VENTRICLE Size: The left ventricular size is normal. Systolic Function:The left ventricular systolic function is normal. Wall Motion: No regional wall motion abnormalities noted. The left ventricular ejection fraction was calculated to be 77%.TID = . LV PERFUSION Predominantly fixed infero-apical defect. No reversible defects identified. Conclusion The left ventricular size is normal. The left ventricular systolic function is normal. No regional wall motion abnormalities noted. Predominantly fixed infero-apical defect. No reversible defects identified. The left ventricular ejection fraction was calculated to be 77%.
== END | disposition home or self-care (01) ==
LOC: SHCH 08:39
PROVIDERS: ATTEND Internal Medicine Cardiovascular Disease
DX: R94.31 Abnormal electrocardiogram [ECG] [EKG] (principal)
CPT/HCPCS: 78452; 93017; J2785; A9500 ×2

== ENCOUNTER → 2024-07-04 | Outpatient (CLI) | payer MEDICARE | END | disposition home or self-care (01) | LOC: RESP 12:55 | PROVIDERS: ATTEND Internal Medicine Cardiovascular Disease | DX: R06.00 Dyspnea, unspecified (principal) | CPT/HCPCS: 94060; 94729 ==

== ENCOUNTER 2024-10-24 21:41 | Emergency (ER) | payer MEDICARE ==
[~2024-10-24] VITALS: Ht 157.5 cm; Wt 80.7 kg
--- NOTE | 2024-10-24 23:45 | NUR ---
ASSUMED PT CARE
[2024-10-24 23:56] LABS: BASOPHILS # (AUTO) 0.02 K/uL (0.00-0.20); BASOPHILS % (AUTO) 0.2 % (0.0-5.0); EOSINOPHILS # (AUTO) 0.01 K/uL (0.00-0.70); EOSINOPHILS % (AUTO) 0.1 % (0.0-8.0); IMMATURE GRANULOCYTE ABSOLUTE 0.04 K/uL (0-1); LYMPHOCYTES # (AUTO) 1.7 K/uL (1.0-4.8); LYMPHOCYTES % (AUTO) 16.8 % (21.0-51.0); MEAN CORPUSCULAR HEMOGLOBIN 31.1 pg (27.0-33.0); MEAN CORPUSCULAR HGB CONC 33.8 g/dL (32.0-36.0); MEAN CORPUSCULAR VOLUME 92.1 fL (79-99); MONOCYTES # (AUTO) 0.9 K/uL (0.1-1.0); MONOCYTES % (AUTO) 8.4 % (3.0-13.0); NEUTROPHILS # (AUTO) 7.7 K/uL (1.8-7.7); NEUTROPHILS % (AUTO) 74.1 % (40.0-77.0); PLATELET COUNT (AUTO) 258 K/uL (130-400); RED BLOOD CELL COUNT(AUTO) 4.56 MIL/uL (4.00-5.50); RED CELL DISTRIBUTION WIDTH 12.7 % (11.0-15.5); WHITE BLOOD COUNT (AUTO) 10.3 K/uL (4.8-10.8)
[2024-10-24] MEDS: 0.9%NACL 1000ML 1,000 ML IV ONE (23:59)
[2024-10-24] MEDS: ondanSETRON 4MG INJ IVP ONE (23:59)
[2024-10-25 00:05] LABS: APPEARANCE,URINE CLEAR (CLEAR); BILIRUBIN,URINE NEGATIVE (NEGATIVE); COLOR,URINE COLORLESS (YELLOW); GLUCOSE, URINE (UA) NEGATIVE (NEGATIVE); KETONES,URINE NEGATIVE (NEGATIVE); LEUKOCYTE ESTERASE ,URINE 250 Leu/uL (NEGATIVE); NITRATE,URINE NEGATIVE (NEGATIVE); OCCULT BLOOD,URINE NEGATIVE (NEGATIVE); PH,URINE 5.5 (5.0-8.0); PROTEIN,URINE NEGATIVE (NEGATIVE); UROBILINOGEN,URINE 0.2 mg/dL (0.2-1.0)
[2024-10-25 00:07] LABS: ADD UA MICROSCOPIC YES
[2024-10-25 00:08] LABS: BACTERIA,URINE FEW /HPF (None Seen); RBC,URINE 0-1 /HPF (0-1); SQUAMOUS EPITHELIAL CELL,UR RARE /HPF (0-2)
[2024-10-25 00:08] LABS: CREATININE 0.8 mg/dL (0.5-1.0); POTASSIUM 3.6 mmol/L (3.5-5.1)
[2024-10-25 00:15] LABS: ALBUMIN 3.5 g/dL (3.5-5.0); BILIRUBIN,DIRECT 0.2 mg/dL (0.0-0.3); BILIRUBIN,TOTAL 0.9 mg/dL (0.2-1.0); MAGNESIUM 1.8 mg/dL (1.80-2.40); TOTAL PROTEIN, SERUM 6.9 g/dL (6.0-8.3)
[2024-10-25] MEDS: cefTRIAXone 1G VIAL IVPB ONE (00:52)
[2024-10-25 00:53] LABS: COVID19 (SARS ANTIGEN RAPID) PRESUMPTIVE NEGATIVE (NEGATIVE); INFLUENZA TYPE A Negative For Type A (NEGATIVE); INFLUENZA TYPE B Negative For Type B (NEGATIVE)
[2024-10-25] MEDS ORDERED: ONDA-243 PO (01:12)
[2024-10-25] MEDS ORDERED: CEPH500B PO (01:12)
--- NOTE | 2024-10-25 01:13 | ERN ---
ED Note History of Present Illness Stated Complaint: C/O ABD PAIN WITH DIARRHEA, NAUSEA Chief Complaint: Abdominal Pain Time Seen by MD: 21:59 Time Seen by Midlevel: 21:59 Dictation: The patient is a 84-year-old female with a history of hypertension, AFib on Eliquis, hypothyroidism who presents to the emergency department with complaints of two days of nonbloody diarrhea and nausea. Patient reports occasional generalized abdominal pain. Currently not having any abdominal pain. Patient also reports that she has been having upper respiratory symptoms of nasal congestion, nonproductive cough prior to the diarrhea. Denies any fevers, vomiting, urinary discomfort. Shortness of breath or chest pain. Allergies: Coded Allergies: No Known Drug Allergies (Unverified Allergy, Unknown, 03/22/24) Home Meds Reported Medications Levothyroxine Sodium (Levothyroxine Sodium) 150 Mcg Tablet, 150 MCG PO [id number] 03/23/24 Levothyroxine Sodium (Synthroid) 137 Mcg Tablet, 137 MCG PO [id number] 03/23/24 Losartan Potassium (Cozaar) 25 Mg Tablet, 1 TAB PO DAILY for 30 Days, #30 TAB 0 Refills 03/22/24 Meloxicam (Meloxicam) 7.5 Mg Tablet, 1 TAB PO DAILY for 30 Days, #30 TAB 0 Refills 03/22/24 Amlodipine Besylate (Norvasc) 5 Mg Tablet, 1 TAB PO DAILY for 30 Days, #30 TAB 0 Refills 03/22/24 Anastrozole (Arimidex) 1 Mg Tab, 1 TAB PO DAILY for 30 Days, #30 TAB 0 Refills 03/22/24 Ergocalciferol (Vitamin D2) (Vitamin D2) 1,250 Mcg (17002 Unit) Capsule, 1 CAP PO QWEEK for 28 Days, #4 CAP 0 Refills 03/22/24 Rosuvastatin Calcium (Rosuvastatin Calcium) 5 Mg Tablet, 5 MG PO HS, TAB 11/03/21 Propafenone HCl (Rythmol Sr) 225 Mg Cap.er.12h, 225 MG PO BID, CAPSULE.DR 02/01/17 Metoprolol Tartrate (Lopressor 50Mg Tab) 50 Mg Tab, 50 MG PO BID, TAB 02/01/17 Apixaban (Eliquis) 5 Mg Tablet, 5 MG PO BID, TAB 02/01/17 Past Medical History Past Medical History: A-Fib, Hypertension, Hypothyroid, Other Additional Past Medical Hx: BREAST CA Surgical History: Other Surgical History Other: RT MASTECTOMY Social History: Negative, Lives with family RN Note Reviewed/Agreed w/PFSH: Yes Review of System Dictation Constitutional: Negative for fever,chills, and weight loss Eyes: Negative for injury, pain,redness, and discharge ENT: Negative for injury,pain or swelling positive for nasal congestion Cardiovascular: Negative for chest pain, palpitations, and edema Respiratory: Negative for shortness of breath and wheezing, positive for cough Abdomen/GI: Negative for nausea, vomiting, and constipation positive for diarrhea, abdominal pain Back: Negative for injury and pain : Negative for injury, bleeding and discharge MS/Extremity: Negative for injury and deformity Skin: Negative for rash, and discoloration Neuro: Negative for headache, weakness, numbness, tingling, and seizure Psych: Negative for suicide ideation, homicidal ideation, and hallucinations Initial Vital Sign VS Vital Signs Date Time Temp Pulse Resp B/P (MAP) Pulse Ox O2 Delivery O2 Flow Rate FiO2 10/24/24 21:42 98.2 78 20 115/70 96 Room Air Physical Exam Dictation Vital Signs reviewed General Appearance: Alert, oriented x 3, no acute distress, well developed, nourished. Head and Face: non-traumatic. Eyes: PERRL, pink conjunctivas, eyelid no trauma, anterior chamber with arcus senilis. Ears: Pinnas intact and no signs of trauma or erythema ear canals clear and no discharge TM no erythema Nose: No discharge, no bleeding. Oropharynx: Mouth normal, tongue pink. pharynx clear,no erythema, tonsils no exudates, no abscesses noted, mucous membrane moist Neck: Supple, non-tender, no thyromegaly, no masses, no JVD, no bruits Breast:Deferred Chest:No tenderness, no crepitus, no paradoxical movement, no retractions Lungs:Clear, well-ventilated, symmetric, no rales, no wheezing, no rhonchi, no stridor, good breath sounds bilaterally Heart: Regular rate, regular rhythm, no murmur, no gallops Vascular: no peripheral edema, Abdomen: Soft, positive bowel sounds, nondistended, no guarding, nontender, no rebound, no masses no hepatomegaly, no splenomegaly, no Forrest's sign, no hernias. Rectal: Deferred Genital: Deferred Neurological: Normal speech, motor function intact, sensory function intact Musculoskeletal: Neck nontender, full range of motion, back nontender, full range of motion, Extremities: nontender, full range of motion Skin: Color pink, dry, no turgor, no rash, no lacerations, no abrasions, no contusions. Lymphatic: Deferred Results (Laboratory/Radiology) Laboratory/Radiology Laboratory Tests Test 10/24/24 23:39 10/24/24 23:43 10/25/24 00:07 White Blood Count 10.3 K/uL (4.8-10.8) Red Blood Count 4.56 MIL/uL (4.00-5.50) Hemoglobin 14.2 g/dL (12.0-16.0) Hematocrit 42.0 % (36-48) Mean Corpuscular Volume 92.1 fL (79-99) Mean Corpuscular Hemoglobin 31.1 pg (27.0-33.0) Mean Corpuscular Hemoglobin Concent 33.8 g/dL (32.0-36.0) Red Cell Distribution Width 12.7 % (11.0-15.5) Platelet Count 258 K/uL (130-400) Mean Platelet Volume 10.3 fL (7.5-10.5) Immature Granulocyte % (Auto) 0.4 % (0-1) Neutrophils (%) (Auto) 74.1 % (40.0-77.0) Lymphocytes (%) (Auto) 16.8 % (21.0-51.0) L Monocytes (%) (Auto) 8.4 % (3.0-13.0) Eosinophils (%) (Auto) 0.1 % (0.0-8.0) Basophils (%) (Auto) 0.2 % (0.0-5.0) Neutrophils # (Auto) 7.7 K/uL (1.8-7.7) Lymphocytes # (Auto) 1.7 K/uL (1.0-4.8) Monocytes # (Auto) 0.9 K/uL (0.1-1.0) Eosinophils # (Auto) 0.01 K/uL (0.00-0.70) Basophils # (Auto) 0.02 K/uL (0.00-0.20) Absolute Immature Granulocyte (auto 0.04 K/uL (0-1) Nucleated Red Blood Cells 0.0 % (0.0-0.19) Sodium Level 139 mmol/L (136-145) Potassium Level 3.6 mmol/L (3.5-5.1) Chloride Level 101 mmol/L (101-111) Carbon Dioxide Level 28 mmol/L (21-32) Blood Urea Nitrogen 10 mg/dL (7-18) Creatinine 0.8 mg/dL (0.5-1.0) Glomerular Filtration Rate Calc 72 mL/min (>90) Random Glucose 133 mg/dL (70-105) H Total Calcium 8.5 mg/dL (8.5-10.1) Magnesium Level 1.80 mg/dL (1.80-2.40) Total Bilirubin 0.9 mg/dL (0.2-1.0) Direct Bilirubin 0.2 mg/dL (0.0-0.3) Aspartate Amino Transf (AST/SGOT) 23 U/L (10-37) Alanine Aminotransferase (ALT/SGPT) 22 U/L (12-78) Alkaline Phosphatase 56 U/L (50-136) Total Creatine Kinase 87 U/L (21-232) # Troponin I High Sensitivity 20.7 ng/L (4-50) Total Protein 6.9 g/dL (6.0-8.3) Albumin 3.5 g/dL (3.5-5.0) Lipase 48 U/L (16-77) Urine Color COLORLESS (YELLOW) Urine Appearance CLEAR (CLEAR) Urine pH 5.5 (5.0-8.0) Urine Specific [place] 1.002 (1.001-1.031) Urine Protein NEGATIVE mg/dL (NEGATIVE) Urine Glucose (UA) NEGATIVE mg/dL (NEGATIVE) Urine Ketones NEGATIVE mg/dL (NEGATIVE) Urine Occult Blood NEGATIVE (NEGATIVE) Urine Nitrate NEGATIVE (NEGATIVE) Urine Bilirubin NEGATIVE mg/dL (NEGATIVE) Urine Urobilinogen 0.2 mg/dL (0.2-1.0) Urine Leukocyte Esterase 250 Sujey/uL (NEGATIVE) H Urine RBC 0-1 /HPF (0-1) Urine WBC 11-25 /HPF (0-1) H Urine Squamous Epithelial Cells RARE /HPF (0-2) Urine Bacteria FEW /HPF (None Seen) Influenza Type A Antigen Negative For Type A Influenza Type B Antigen Negative For Type B SARS-CoV-2 Antigen (Rapid) PRESUMPTIVE NEGATIVE Labs Reviewed?: Yes EKG: (+) rhythm (Sinus rhythm) EKG Comment: Date:10/24/2024 Time:2348 Ventricular rate:66 PA interval:175 QRS duration:101 QT/QTc:438 EKG interpretation: Sinus rhythm Reviewed by ED Attending no STEMI ED Course ED Course Orders Procedure Category Date Status Time Cbc With Differential LAB 10/24/24 Complete 22:13 Urinalysis Profile LAB 10/24/24 Complete 22:13 12 Lead Ekg Tracing- EKG 10/24/24 Logged Technical 22:13 0.9%Nacl 1000ml (Ns PHA 10/24/24 Complete 1000ml) 22:30 Ondansetron 4mg Inj PHA 10/24/24 Complete (Zofran 4mg Inj) 22:30 Chest 1vw RAD 10/24/24 Taken 22:13 Lipase LAB 10/24/24 Complete 22:13 Basic Metabolic Panel LAB 10/24/24 Complete 22:13 Covid19 (Sars Antigen LAB 10/24/24 Complete Rapid) 22:13 Influenza Type A & B, LAB 10/24/24 Complete Rapid 22:13 Hepatic Function Panel LAB 10/24/24 Complete 22:13 Magnesium LAB 10/24/24 Complete 22:13 Cardiac Panel LAB 10/24/24 Complete 22:13 Culture Urine ORLIN 10/25/24 In Process 00:07 Ceftriaxone 1g Vial PHA 10/25/24 Complete (Rocephine 1g Inj) 01:00 Current Medications Medications (Trade) Dose Ordered Sig/Otto Route PRN Reason Start Time Stop Time Status Last Admin Dose Admin Ceftriaxone Sodium (ROCEphine 1G INJ) 1 gm ONCE ONCE IVPB 10/25/24 01:00 10/25/24 01:01 DC 10/25/24 00:52 Ondansetron HCl (zoFRAN 4MG INJ) 4 mg ONCE ONCE IVP 10/24/24 22:30 10/24/24 22:31 DC 10/24/24 23:59 Sodium Chloride 1,000 ml @ 0 mls/hr ONCE ONCE IV 10/24/24 22:30 10/24/24 22:31 DC 10/24/24 23:59 Vital Signs Date Time Temp Pulse Resp B/P (MAP) Pulse Ox O2 Delivery O2 Flow Rate FiO2 10/24/24 21:42 98.2 78 20 115/70 96 Room Air Medical Decision Making MDM The patient is a 84-year-old female with a history of hypertension, AFib on Eliquis, hypothyroidism who presents to the emergency department with complaints of two days of nonbloody diarrhea and nausea. Patient reports occasional generalized abdominal pain. Currently not having any abdominal pain. Patient also reports that she has been having upper respiratory symptoms of nasal congestion, nonproductive cough prior to the diarrhea. Denies any fevers, vomiting, urinary discomfort. Shortness of breath or chest pain. CBC showed no leukocytosis, no anemia, chemistry showed no electrolyte imbalance, GFR of 72, unchanged from previous visits, negative liver enzymes, negative lipase negative troponin, serology negative, urinalysis positive for leukocyte esterase. Patient was given Rocephin, IV fluids and antiemetics. X- ray showed no acute pathology. Patient has not had any episodes of vomiting. On physical exam patient appears nontoxic, soft nontender abdomen to palpation. Patient with stable vital signs. Symptoms probably related to viral illness. Labs and imaging discussed with the patient who agrees to be discharged and follow up with primary doctor. Differential diagnosis: Gastroenteritis, dehydration, ACS, pneumonia, yohan ctrolyte imbalance Need for hospitalization: Patient does not meet criteria for hospitalization. There are no social concerns with this patient. DX & DISP Disposition: Discharge Departure Impression: Primary Impression: Viral gastroenteritis Additional Impressions: URI (upper respiratory infection), UTI (urinary tract infection) Condition: Stable Scripts Cephalexin Monohydrate (Keflex) 500 Mg Cap 500 MG PO BID for 5 Days, #10 CAP Prov: CARTER DORANTES [employer]FORE [employer] WORK[employer] 10/25/24 Ondansetron (Ondansetron Odt) 4 Mg Tab.rapdis 4 MG PO Q6HPRN PRN for nausea, #16 TAB 0 Refills Prov: CARTER DORANTES [employer] WORKER 10/25/24 Additional Instructions: Please follow up with your primary doctor in 1-2 days. Continue hydration at home. If symptoms worsen please return to ER. FOLLOW-UP WITH PRIMARY CARE PROVIDER IN 1 TO 2 DAYS. TAKE MEDICATIONS DIRECTED HERE IN THE EMERGENCY ROOM. OKAY TO CONTINUE HOME MEDICATIONS UNLESS OTHERWISE DISCUSSED DURING YOUR VISIT IN THE EMERGENCY ROOM TODAY. RETURN TO YOUR NEAREST EMERGENCY ROOM IF SYMPTOMS WORSEN OR IF THERE IS NO IMPROVEMENT. CALL 911 IF YOU NEED IMMEDIATE ASSISTANCE. TAKE TYLENOL OR MOTRIN OSBY-EQY-PULTJYE NEEDED AND IF NO CONTRAINDICATIONS ARE PRESENT. INCREASE ORAL HYDRATION. A WOUND CULTURE OR URINE CULTURE WAS ORDERED HERE IN THE EMERGENCY ROOM DEPARTMENT PLEASE FOLLOW-UP WITH PRIMARY CARE PROVIDER AND ADVISE THEM TO GET REPEAT PORTS FROM OUR FACILITY. IF YOU HAD ANY MAURI WRAP/SPLINTS THAT WERE APPLIED HERE, PLEASE DO NOT REMOVE THEM UNTIL YOU SEE YOUR PRIMARY CARE OR SPECIALTY. Referrals: SHAUN CABRALES MD (PCP) Time of Disposition: 01:11 I have reviewed the case, and I agree with, Diagnosis and Plan CARTER DORANTES October 25, 2024 01:13
[2024-10-25 01:50] VITALS: BP 132/68; PULSE 88; RESP 18; TEMP 98.5; O2SAT 99
--- NOTE | 2024-10-25 08:33 | EKG ---
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
--- NOTE | 2024-10-25 09:08 | HMCIMG ---
Exam Type: CHEST 1VW Clinical Information: cough Comparison: None Findings: The lungs are clear of infiltrates. The heart is normal in size. The bony and soft tissue structures of the chest are unremarkable. Impression: Clear lungs.
== END 2024-10-25 02:02 | disposition home or self-care (01) ==
LOC: EDH 21:41
DX: A08.4 Viral intestinal infection, unspecified (principal); J06.9 Acute upper respiratory infection, unspecified; N39.0 Urinary tract infection, site not specified; E03.9 Hypothyroidism, unspecified; I10 Essential (primary) hypertension; I48.91 Unspecified atrial fibrillation; Z20.822 Contact with and (suspected) exposure to COVID-19; Z79.01 Long term (current) use of anticoagulants; Z79.1 Long term (current) use of non-steroidal anti-inflammatories (NSAID); Z79.811 Long term (current) use of aromatase inhibitors; Z79.899 Other long term (current) drug therapy; Z98.890 Other specified postprocedural states
CPT/HCPCS: 99285; 96374; 71045; 87426; 82550; 80076; 83735; 84484; 80048; 83690; 85025; 87086; 87804 ×2; 81001; 36415; 93005; 96375; J7030; J2405; J0696

== ENCOUNTER → 2024-12-05 | Outpatient (CLI) | payer MEDICARE ==
[~2024-12-05] MED LIST changes: +AMLO-257 PO; -AMLO5TAB5 PO; +LEVO137T2 PO; -LEVO137T24 PO; -LEVO150T11 PO; +LEVO150T6 PO; -LOSA-417 PO; +LOSA25TA41 PO; -MELO-106 PO; +PANT40TA54 PO; -PROP225C11 PO; +PROP225C24 PO
--- NOTE | 2024-12-05 19:26 | HMCIMG ---
NM GASTRIC EMPTYING STUDY REASON: ABD/EPIGASTRIC PAIN. COMPARISON: None TECHNIQUE: Nuclear Gastric emptying study was performed with 1.5 mCi of technetium sulfa colloid with scrambled eggs through oral route. FINDINGS: T half for gastric emptying is 135 minutes. IMPRESSION: Abnormal delay gastric emptying with T half of 135 minutes.
== END | disposition home or self-care (01) ==
LOC: RAH 08:31
PROVIDERS: ATTEND Internal Medicine Nephrology
DX: K30 Functional dyspepsia (principal)
CPT/HCPCS: 78264; A9541

== ENCOUNTER → 2025-02-07 | Outpatient (CLI) | payer MEDICARE ==
[~2025-02-07] MED LIST changes: +IOHEXOL-350 75 ML VIAL IV ONE
--- NOTE | 2025-02-07 13:12 | HMCIMG ---
EXAM: CT Chest With and Without Intravenous Contrast. CLINICAL HISTORY: Shortness of breath. TECHNIQUE: Axial computed tomography images of the chest with and without intravenous contrast. Dose reduction technique was used including one or more of the following: automated exposure control, adjustment of mA and kV according to patient size, and/or iterative reconstruction. CONTRAST: With and Without; Standard dose of intravenous contrast. COMPARISON: None provided. FINDINGS: LUNGS: Minimal atelectasis at the lung bases. Negative for pulmonary embolism. No pulmonary mass. No focal airspace consolidation. PLEURAL SPACES: No pleural effusion. No pneumothorax. HEART AND MEDIASTINUM: No cardiomegaly. No significant pericardial effusion. LYMPH NODES: Small mediastinal and hilar lymph nodes. CHEST WALL AND UPPER ABDOMEN: Cholecystectomy clips. The upper abdominal solid organs are otherwise unremarkable. The chest wall is unremarkable. BONES: Mild degenerative changes of the thoracic spine. No acute osseous abnormality. IMPRESSION: 1. No acute intra-thoracic abnormality related to shortness of breath. 2. Small mediastinal and hilar lymph nodes. /[place]
== END | disposition home or self-care (01) ==
LOC: RAH 10:08
PROVIDERS: ATTEND Internal Medicine Cardiovascular Disease
DX: R06.02 Shortness of breath (principal); M47.814 Spondylosis without myelopathy or radiculopathy, thoracic region; Z90.49 Acquired absence of other specified parts of digestive tract
CPT/HCPCS: 71270; Q9967

== ENCOUNTER 2025-04-04 09:05 | Emergency (ER) | payer MEDICARE ==
[~2025-04-04] VITALS: Ht 157.5 cm; Wt 73.9 kg
[~2025-04-04 09:05] MED LIST changes: -IOHEXOL-350 75 ML VIAL IV ONE
--- NOTE | 2025-04-04 09:16 | ERN ---
General Chief Complaint: Ankle Problem Stated Complaint: ANKLE Time Seen by MD: 09:06 Source: patient History of Present Illness Initial Comments Patient is a an 84-year-old female coming in with left ankle pain. Per patient earlier today while turning around she felt as if her ankle popped she fell down landing on her left hip. She did not not lose consciousness she did not hit her head. She states he has a tenderness in the the left ankle. Allergies: Coded Allergies: No Known Drug Allergies (Unverified Allergy, Unknown, 03/22/24) Home Meds Reported Medications Pantoprazole Sodium (Pantoprazole Sodium) 40 Mg Tablet.dr, 1 TAB PO DAILY for 30 Days, #30 TAB 0 Refills 11/04/24 Levothyroxine Sodium (Synthroid) 150 Mcg Tablet, 1 TAB PO QODAY 10/28/24 Levothyroxine Sodium (Levothyroxine Sodium) 137 Mcg Tablet, 1 TAB PO QODAY 10/28/24 Ergocalciferol (Vitamin D2) (Vitamin D2) 1,250 Mcg (89106 Unit) Capsule, 1 CAP PO QWEEK Saturdays10/28/24 Amlodipine Besylate (Amlodipine Besylate) 5 Mg Tablet, 1 TAB PO PM 10/28/24 Losartan Potassium (Losartan Potassium) 25 Mg Tablet, 1 TAB PO BID 10/28/24 Anastrozole (Arimidex) 1 Mg Tab, 1 TAB PO DAILY 10/28/24 Propafenone HCl (Propafenone HCl) 225 Mg Cap.er.12h, 1 CAP PO BID 10/28/24 Apixaban (Eliquis) 5 Mg Tablet, 1 TAB PO BID 10/28/24 Rosuvastatin Calcium (Rosuvastatin Calcium) 5 Mg Tablet, 1 TAB PO PM 10/28/24 Metoprolol Tartrate (Lopressor 50Mg Tab) 50 Mg Tab, 1 TAB PO BID 10/28/24 Past Medical History Past Medical History: A-Fib, Hypertension, Hypothyroid, Other Medical History Other: BREAST CA Past Surgical History: Other Surgical History Other: RT MASTECTOMY Social History Social History: Negative, Lives with family ROS Dictation CONSTITUTIONAL: No chills, no fever, no weakness, no diaphoresis, no malaise. HEAD/FACE: No signs of trauma. EENT: No eye pain, no blurred vision, no tearing, no double vision, no ear pain, no ear discharge, no nose pain, no nasal congestion, no throat pain, no throat swelling, no mouth pain. RESPIRATORY: No cough, no orthopnea, no SOB, no stridor, no wheezing. CARDIOVASCULAR: No chest pain, no edema, no palpitations, no syncope. GASTROINTESTINAL/ABDOMINAL: No abdominal pain, no constipation, no diarrhea, no nausea, no vomiting. GENITOURINARY: No abnormal discharge, no dysuria, no frequent urination, no hematuria. No complaints of pain in the genitals. MUSCULOSKELETAL: No back pain, no gout, joint pain, joint swelling, no muscle pain, no muscle stiffness, no neck pain. INTEGUMENTARY: No change in color, no change in hair/nails, no dryness, no lesion, no lumps, no rash. NEUROLOGICAL/PSYCH: No anxiety, not depressed, no emotional problem, no headache, no numbness, no pre-existing deficit, no history of seizures, no tremors, no weakness. HEMATOLOGIC/LYMPHATIC: Not anemic, no history of blood clots, no apparent bleeding, no bruising, glands not swollen. All Systems Negative, Except as Noted. Physical Exam Physical Exam Dictation VITAL SIGNS: Reviewed. GENERAL APPEARANCE: Alert, oriented x3, no acute distress, obese. HEAD AND FACE: Non-traumatic. EYES: PERRL, pink conjunctivas, eyelid no trauma, anterior chamber clear. EARS: Pinnas intact and no signs of trauma or erythema. Ear canals clear and no discharge. TMs no erythema. NOSE: No discharge, no bleeding. OROPHARYNX: Mouth normal, teeth no caries, tongue pink. Pharynx clear, no erythema. Tonsils no exudates, no abscesses noted. Mucous membrane moist. NECK: Supple, non-tender, no thyromegaly, no masses, no JVD, no bruits. BREAST: Deferred. CHEST: No tenderness, no crepitus, no paradoxical movement, no retractions. LUNGS: Clear, well-ventilated, symmetric, no rales, no wheezing, no rhonchi, no stridor, good breath sounds bilaterally. HEART: Regular rate, regular rhythm, no murmur, no gallops. VASCULAR: No peripheral edema. ABDOMEN: Soft, positive bowel sounds, nondistended, no guarding, nontender, no rebound, no masses no hepatomegaly, no splenomegaly, no Forrest's sign, no hernias. RECTAL: Deferred. GENITAL: Deferred. NEUROLOGICAL: Normal speech, gross motor function intact, gross sensory function intact. MUSCULOSKELETAL: Neck nontender, full range of motion, back nontender, full range of motion. EXTREMITIES: Nontender, full range of motion. SKIN: Color pink, dry, no turgor, no rash, no lacerations, no abrasions, no contusions. LYMPHATICS: Deferred. Results Laboratory and Microbiology Labs Reviewed?: Yes EKG/XRAY/US/CT/MRI X-RAY Comment left hip xray- nad left ankle xray- left lateral malleolar fracture, fibular fracture MDM MDM: Differential diagnosis: Fracture, left lateral malleolar fracture, fall Rationale: Tests considered and ordered secondary to shared decision making include: Previous outside records reviewed: Old ER visits. Risk of complication and/or morbidity or mortality of patient management: None Medications-Per medication reconciliation Need for hospitalization: Patient does not meet criteria for hospitalization. Need for emergency major/minor surgery: No Patient is a an 84-year-old female coming in complaining of left ankle left hip pain. X-ray disclose a left lateral malleolar fracture. Sugar-tong splint was placed by nursing staff. Patient will be discharged in stable condition with a diagnosis of left lateral malleolar fracture we will advise her appropriate follow up with PCP as well. Crutches will be provided ED Course Orders Procedure Category Date Status Time Ankle Comp 3vws Lt RAD 04/04/25 Taken 09:08 Hip Unilat 2-3vw Left RAD 04/04/25 Taken 09:08 Acetaminophen 500mg PHA 04/04/25 Complete Tab (Tylenol 500mg T 09:30 Ankle Stirrup Splint DEJON.ER 04/04/25 In Process 10:09 Current Medications Medications (Trade) Dose Ordered Sig/Otto Route PRN Reason Start Time Stop Time Status Last Admin Dose Admin Acetaminophen (TYLenol 500MG TAB) 500 mg ONCE ONCE PO 04/04/25 09:30 04/04/25 09:31 DC 04/04/25 09:19 Vital Signs Date Time Temp Pulse Resp B/P (MAP) Pulse Ox O2 Delivery O2 Flow Rate FiO2 04/04/25 09:25 98.6 68 18 134/62 95 Room Air* 0 21 04/04/25 09:16 97.9 62 18 134/62 95 Room Air 0 DX & DISP Disposition: Discharge Departure Impression: Primary Impression: Closed left malleolar fracture Condition: Stable Scripts Acetaminophen (Tylenol) 500 Mg Tab 1 TAB PO Q6HPRN PRN for pain or fever for 5 Days, #30 TAB 0 Refills Prov: AD VAZQUEZ MD 04/04/25 Additional Instructions: FOLLOW-UP WITH PRIMARY CARE PROVIDER IN 1 TO 2 DAYS. TAKE MEDICATIONS DIRECTED HERE IN THE EMERGENCY ROOM. OKAY TO CONTINUE HOME MEDICATIONS UNLESS OTHERWISE DISCUSSED DURING YOUR VISIT IN THE EMERGENCY ROOM TODAY. RETURN TO YOUR NEAREST EMERGENCY ROOM IF SYMPTOMS WORSEN OR IF THERE IS NO IMPROVEMENT. CALL 911 IF YOU NEED IMMEDIATE ASSISTANCE. TAKE TYLENOL [id number] NEEDED AND IF NO CONTRAINDICATIONS ARE PRESENT. INCREASE ORAL HYDRATION. A WOUND CULTURE OR URINE CULTURE WAS ORDERED HERE IN THE EMERGENCY ROOM DEPARTMENT PLEASE FOLLOW-UP WITH PRIMARY CARE PROVIDER AND ADVISE THEM TO GET REPORTS FROM OUR FACILITY. IF YOU HAD ANY MAURI WRAP/SPLINTS THAT WERE APPLIED HERE, PLEASE DO NOT REMOVE THEM UNTIL YOU SEE YOUR PRIMARY CARE OR SPECIALTY. Referrals: Referrals: SHAUN CABRALES MD (PCP) Time of Disposition: 10:40 AD VAZQUEZ MD Apr 04, 2025 09:16
[2025-04-04 09:25] VITALS: TEMP 98.6
--- NOTE | 2025-04-04 10:34 | HMCIMG ---
HIP UNILAT 2-3VW LEFT REASON: fall TECHNIQUE: 3 views were obtained. FINDINGS: There is no evidence of fracture or dislocation. There is no joint effusion. The soft tissues appear unremarkable. There is no evidence of a radiopaque foreign body. There is osteoarthropathy of both femoral acetabular joint with narrowing IMPRESSION: No acute findings. Osteoarthropathy of both femoral acetabular joint.
--- NOTE | 2025-04-04 10:36 | HMCIMG ---
ANKLE COMP 3VWS LT REASON: fall TECHNIQUE: 3 views were obtained. FINDINGS: There is a nondisplaced spiral fracture of the distal left fibula.. There is no joint effusion. There is bimalleolar soft tissue swelling.. There is no evidence of a radiopaque foreign body. The ankle mortise joint appears to be anatomical position. IMPRESSION: Nondisplaced spiral fracture of the distal left fibula.
[2025-04-04] MEDS ORDERED: ACET-66 PO (10:41)
[2025-04-04 10:46] VITALS: BP 124/68; PULSE 69; RESP 20; O2SAT 99
--- NOTE | 2025-04-04 10:54 | NUR ---
ANKLE STIRRUP SPLINT APPLIED. PT TOLERATED PROCEDURE WELL.
== END 2025-04-04 10:55 | disposition home or self-care (01) ==
LOC: EDH 09:05
DX: S82.832A Other fracture of upper and lower end of left fibula, initial encounter for closed fracture (principal); I10 Essential (primary) hypertension; E03.8 Other specified hypothyroidism; I48.91 Unspecified atrial fibrillation; Z79.01 Long term (current) use of anticoagulants; Z79.899 Other long term (current) drug therapy; Z79.811 Long term (current) use of aromatase inhibitors; Z85.3 Personal history of malignant neoplasm of breast; Z90.11 Acquired absence of right breast and nipple; W19.XXXA Unspecified fall, initial encounter; Y93.89 Activity, other specified; Y92.89 Other specified places as the place of occurrence of the external cause; Y99.8 Other external cause status
CPT/HCPCS: 29515; 73502; 73610; 99284